=== PATIENT | male | born 1955 | race Caucasian/White ===

== ENCOUNTER → 2016-09-07 | Outpatient (CLI) | payer OTHER ==
[~2016-09-07] MED LIST: IOPAMIDOL (ISOVUE-300) 100 ML BTL IV ONE
--- NOTE | 2016-09-07 13:04 | CT ---
CT Abdomen and Pelvis With Contrast History: Left lower quadrant pain. Comparison: None available. Technique: Axial contrast-enhanced images were obtained through the abdomen and pelvis following the uneventful administration of oral and 90 mL Isovue-300 intravenous contrast. Dose reduction techniqu es were utilized. Creatinine is 0.9. Findings: Abdomen: There is mild basilar scarring/atelectasis. Heart size is normal. The visible portion of the ascending aorta is borderline aneurysmal, measuring 4.0 x 4.1 cm (AP x transverse, without dissectio n. Three-vessel coronary artery atherosclerosis is present. A subcentimeter hypodensity in the right lobe of the liver is too small to characterize, statisticall y likely to represent a cyst. The gallbladder, spleen, pancreas, and adrenals are normal. Subcentimet er hypodensities in the kidneys are too small to characterize, statistically likely to represent cyst s. Moderate stool is present in the proximal colon. The colon and small bowel are normal caliber without evidence of obstruction. The appendix is not visible. There is no free fluid or air. A tiny fat-cont aining periumbilical hernia is present. The aorta is normal caliber with moderate atherosclerosis. The IVC, hepatic, portal, splenic, and sup erior mesenteric veins are patent. No pathologically enlarged lymph nodes are identified. There is moderate degenerative change in the spine with congenital spinal canal narrowing exacerbated by multilevel degenerative change, leading to moderate to severe spinal canal narrowing, most promin ent at T9-T10, T10-T11, and L2 through S1. Pelvis: The bladder is normal. The prostate is mildly enlarged, measuring 5.1 cm. Moderate atheroscle rosis is present in the right common femoral artery with probable moderate to severe stenosis. No agg ressive osseous lesions are identified. Impression: 1. No visible etiology for the patient's left lower quadrant pain. 2. Mild aneurysmal dilatation of the ascending aorta. 3. Three-vessel coronary artery atherosclerosis. 4. Multilevel moderate to severe spinal canal narrowing. 5. 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 6 Additional findings as above.
== END ==
LOC: CIMAGING 10:14
PROVIDERS: ATTEND Internal Medicine
DX: R10.32 Left lower quadrant pain (principal); I25.10 Atherosclerotic heart disease of native coronary artery without angina pectoris; I70.211 Atherosclerosis of native arteries of extremities with intermittent claudication, right leg; M48.04 Spinal stenosis, thoracic region; M48.07 Spinal stenosis, lumbosacral region; M51.34 Other intervertebral disc degeneration, thoracic region; M51.37 Other intervertebral disc degeneration, lumbosacral region
CPT/HCPCS: 74177-PO; Q9967